=== PATIENT | female | born 1945 | race Two or more races ===

== ENCOUNTER 2017-08-11 09:15 | Outpatient (CLI) | payer OTHER ==
[~2017-08-11 09:15] MED LIST: CATAFLAM50 MG PO; NORFLEX100 MG PO; ORPH100T PO; PRILOSEC40 MG; SYNTHROID75 MCG; TORADOL10 MG PO; TRAMADOL HCL-AP1 TAB PO; VASOTEC2.5 MG; ZOCOR20 MG; ZOFRAN8 MG
== END 2017-08-11 09:20 | disposition home or self-care (01) ==
LOC: MAMO-SONO 09:15
DX: N63.10 Unspecified lump in the right breast, unspecified quadrant (principal); N63.20 Unspecified lump in the left breast, unspecified quadrant; C50.112 Malignant neoplasm of central portion of left female breast

== ENCOUNTER 2017-09-26 08:15 | Outpatient (CLI) | payer OTHER | END 2017-09-26 08:21 | disposition home or self-care (01) | LOC: TOM 08:15 | DX: C50.311 Malignant neoplasm of lower-inner quadrant of right female breast (principal); C50.312 Malignant neoplasm of lower-inner quadrant of left female breast; Z92.21 Personal history of antineoplastic chemotherapy; Z17.0 Estrogen receptor positive status [ER+]; Z79.811 Long term (current) use of aromatase inhibitors; D51.3 Other dietary vitamin B12 deficiency anemia; D51.9 Vitamin B12 deficiency anemia, unspecified; E03.8 Other specified hypothyroidism; E55.9 Vitamin D deficiency, unspecified; K57.30 Diverticulosis of large intestine without perforation or abscess without bleeding; E78.4 Other hyperlipidemia; I10 Essential (primary) hypertension | CPT/HCPCS: 71260; 74177; Q9965 ==

== ENCOUNTER → 2017-10-07 | Emergency (ER) | payer OTHER ==
[~2017-10-07] VITALS: Ht 160 cm; Wt 61.2 kg
[~2017-10-07] MED LIST changes: +FEMARA2.5 MG PO; +TOPROL XL25 MG PO; +ZESTRIL20 MG PO
== END | disposition home or self-care (01) ==
LOC: ER 09:41
DX: L72.0 Epidermal cyst (principal); L03.312 Cellulitis of back [any part except buttock and flank]

== ENCOUNTER → 2017-10-25 | Outpatient (CLI) | payer OTHER | END | disposition home or self-care (01) | LOC: NUCLEAR 10-20 10:00 | DX: M81.0 Age-related osteoporosis without current pathological fracture (principal) ==

== ENCOUNTER 2018-01-10 09:05 | Outpatient (CLI) | payer OTHER | END 2018-01-10 09:15 | disposition home or self-care (01) | LOC: MAMO-SONO 09:05 | DX: M65.811 Other synovitis and tenosynovitis, right shoulder (principal) ==

== ENCOUNTER → 2018-04-16 | Outpatient (CLI) | payer OTHER | END | disposition home or self-care (01) | LOC: SONOGRAMA 09:01 → MAMO-SONO 09:15 | DX: E03.8 Other specified hypothyroidism (principal); E07.89 Other specified disorders of thyroid ==

== ENCOUNTER 2018-04-25 08:44 | Outpatient (CLI) | payer OTHER ==
[~2018-04-25] VITALS: Ht 152.4 cm; Wt 61.2 kg
== END 2018-04-25 15:52 | disposition home or self-care (01) ==
LOC: OFIC 805 08:44
DX: H90.3 Sensorineural hearing loss, bilateral (principal); H93.11 Tinnitus, right ear; J37.0 Chronic laryngitis; R22.1 Localized swelling, mass and lump, neck; E04.1 Nontoxic single thyroid nodule

== ENCOUNTER 2018-04-25 11:12 | Outpatient (CLI) | payer OTHER | END 2018-04-25 11:20 | disposition home or self-care (01) | LOC: LAB 11:12 | DX: N20.0 Calculus of kidney (principal); Z51.81 Encounter for therapeutic drug level monitoring ==

== ENCOUNTER 2018-04-27 08:00 | Outpatient (CLI) | payer OTHER | END 2018-04-27 08:10 | disposition home or self-care (01) | LOC: TOM 08:00 | DX: E04.1 Nontoxic single thyroid nodule (principal) | CPT/HCPCS: 70491; Q9965 ==

== ENCOUNTER 2018-05-01 09:22 | Outpatient (CLI) | payer OTHER | END 2018-05-01 09:29 | disposition home or self-care (01) | LOC: SONOGRAMA 09:22 | DX: E04.2 Nontoxic multinodular goiter (principal) ==

== ENCOUNTER 2018-05-09 07:33 | Outpatient (CLI) | payer OTHER ==
[~2018-05-09] VITALS: Ht 152.4 cm; Wt 61.2 kg
== END 2018-05-09 08:57 | disposition home or self-care (01) ==
LOC: OFIC 805 07:33
DX: R59.0 Localized enlarged lymph nodes (principal); H93.13 Tinnitus, bilateral; H90.3 Sensorineural hearing loss, bilateral

== ENCOUNTER 2018-05-22 09:31 | Outpatient (CLI) | payer OTHER | END 2018-05-22 09:40 | disposition home or self-care (01) | LOC: RAD 501 09:31 | DX: M17.0 Bilateral primary osteoarthritis of knee (principal) ==

== ENCOUNTER 2018-07-26 07:25 | Emergency (ER) | payer OTHER ==
[~2018-07-26] VITALS: Ht 154.9 cm; Wt 69.4 kg
[2018-07-26] MEDS ORDERED: ZESTRIL30 MG PO (08:09)
[2018-07-26] MEDS ORDERED: KETO10TA2 PO (08:55)
[2018-07-26] MEDS ORDERED: SKELAXIN800 MG PO (08:55)
== END 2018-07-26 09:11 | disposition home or self-care (01) ==
LOC: ER 07:25
DX: M25.551 Pain in right hip (principal)

== ENCOUNTER 2018-08-13 07:49 | Outpatient (CLI) | payer OTHER ==
[~2018-08-13 07:49] MED LIST changes: +KETO10TA2 PO; +SKELAXIN800 MG PO; +ZESTRIL30 MG PO
== END 2018-08-13 08:24 | disposition home or self-care (01) ==
LOC: MAMO-SONO 07:49
DX: Z12.31 Encounter for screening mammogram for malignant neoplasm of breast (principal); N60.11 Diffuse cystic mastopathy of right breast; N60.12 Diffuse cystic mastopathy of left breast

== ENCOUNTER → 2018-09-21 | Outpatient (CLI) | payer OTHER | END | disposition home or self-care (01) | LOC: NUCLEAR 08:43 | DX: M54.5 Low back pain (principal); Z85.3 Personal history of malignant neoplasm of breast | CPT/HCPCS: 78306; A9503 ==

== ENCOUNTER → 2018-10-23 | Outpatient (CLI) | payer OTHER | END | disposition home or self-care (01) | LOC: LAB 09:38 | DX: C50.312 Malignant neoplasm of lower-inner quadrant of left female breast (principal); Z51.81 Encounter for therapeutic drug level monitoring ==

== ENCOUNTER 2018-10-25 07:21 | Outpatient (CLI) | payer OTHER | END 2018-10-25 07:31 | disposition home or self-care (01) | LOC: TOM 07:21 | DX: C50.312 Malignant neoplasm of lower-inner quadrant of left female breast (principal); Z17.0 Estrogen receptor positive status [ER+]; Z79.811 Long term (current) use of aromatase inhibitors; Z92.21 Personal history of antineoplastic chemotherapy; D51.3 Other dietary vitamin B12 deficiency anemia; D51.9 Vitamin B12 deficiency anemia, unspecified; E03.8 Other specified hypothyroidism; E55.9 Vitamin D deficiency, unspecified; K57.30 Diverticulosis of large intestine without perforation or abscess without bleeding; E78.49 Other hyperlipidemia; I10 Essential (primary) hypertension | CPT/HCPCS: 71270; 74178; Q9965 ==

== ENCOUNTER 2018-11-14 08:17 | Outpatient (CLI) | payer OTHER ==
[~2018-11-14] VITALS: Ht 152.4 cm; Wt 61.2 kg
== END 2018-11-14 08:35 | disposition home or self-care (01) ==
LOC: OFIC 805 08:17
DX: R59.9 Enlarged lymph nodes, unspecified (principal); H93.13 Tinnitus, bilateral; J37.0 Chronic laryngitis

== ENCOUNTER 2018-12-12 10:29 | Outpatient (CLI) | payer OTHER | END 2018-12-12 10:36 | disposition home or self-care (01) | LOC: RAD 501 10:29 | DX: M16.0 Bilateral primary osteoarthritis of hip (principal) ==

== ENCOUNTER → 2019-05-15 08:26 | Outpatient (CLI) | payer OTHER | END | disposition home or self-care (01) | LOC: LAB 08:26 | DX: D51.3 Other dietary vitamin B12 deficiency anemia (principal); C50.312 Malignant neoplasm of lower-inner quadrant of left female breast; Z17.0 Estrogen receptor positive status [ER+]; Z79.811 Long term (current) use of aromatase inhibitors; Z92.21 Personal history of antineoplastic chemotherapy; D51.8 Other vitamin B12 deficiency anemias; N93.8 Other specified abnormal uterine and vaginal bleeding; E03.8 Other specified hypothyroidism; E55.9 Vitamin D deficiency, unspecified; K57.30 Diverticulosis of large intestine without perforation or abscess without bleeding; E78.49 Other hyperlipidemia; I10 Essential (primary) hypertension; E28.0 Estrogen excess ==

== ENCOUNTER 2019-05-22 07:48 | Outpatient (CLI) | payer OTHER ==
[~2019-05-22] VITALS: Ht 152.4 cm; Wt 61.2 kg
== END 2019-05-22 08:15 | disposition home or self-care (01) ==
LOC: OFIC 805 07:48
DX: J31.0 Chronic rhinitis (principal); J37.0 Chronic laryngitis; H93.13 Tinnitus, bilateral; H90.3 Sensorineural hearing loss, bilateral

== ENCOUNTER → 2019-08-15 | Outpatient (CLI) | payer OTHER | END | disposition home or self-care (01) | LOC: MAMO-SONO 07:45 | DX: N60.11 Diffuse cystic mastopathy of right breast (principal); N60.12 Diffuse cystic mastopathy of left breast; C50.112 Malignant neoplasm of central portion of left female breast; Z12.31 Encounter for screening mammogram for malignant neoplasm of breast ==

== ENCOUNTER 2019-12-02 10:12 | Outpatient (CLI) | payer OTHER | END 2019-12-02 11:53 | disposition home or self-care (01) | LOC: NUCLEAR 10:12 | PROVIDERS: ATTEND Internal Medicine Rheumatology | DX: M81.0 Age-related osteoporosis without current pathological fracture (principal) ==

== ENCOUNTER 2019-12-05 10:06 | Outpatient (CLI) | payer OTHER | END 2019-12-05 10:13 | disposition home or self-care (01) | LOC: LAB 10:06 | DX: C50.312 Malignant neoplasm of lower-inner quadrant of left female breast (principal) ==

== ENCOUNTER 2019-12-12 07:25 | Outpatient (CLI) | payer OTHER | END 2019-12-12 07:28 | disposition home or self-care (01) | LOC: TOM 07:25 | PROVIDERS: ATTEND Internal Medicine Hematology & Oncology | DX: C50.312 Malignant neoplasm of lower-inner quadrant of left female breast (principal); M81.0 Age-related osteoporosis without current pathological fracture; Z17.0 Estrogen receptor positive status [ER+]; Z79.811 Long term (current) use of aromatase inhibitors; Z92.21 Personal history of antineoplastic chemotherapy; D51.3 Other dietary vitamin B12 deficiency anemia; D51.8 Other vitamin B12 deficiency anemias; N93.8 Other specified abnormal uterine and vaginal bleeding; E03.8 Other specified hypothyroidism; E55.9 Vitamin D deficiency, unspecified; K57.30 Diverticulosis of large intestine without perforation or abscess without bleeding; E78.49 Other hyperlipidemia; I10 Essential (primary) hypertension; E28.0 Estrogen excess | CPT/HCPCS: 71260; 74177; Q9965 ==

== ENCOUNTER 2020-02-22 08:04 | Emergency (ER) | payer OTHER ==
[~2020-02-22] VITALS: Ht 154.9 cm; Wt 61.2 kg
[2020-02-22] MEDS ORDERED: NAPR500T14 (08:29)
[2020-02-22] MEDS ORDERED: DILTIAZEM ER120 M2 (08:29)
[2020-02-22] MEDS ORDERED: SYNTHROID100 MCG (08:30)
== END 2020-02-22 11:34 | disposition home or self-care (01) ==
LOC: ER 08:04
DX: M62.838 Other muscle spasm (principal)

== ENCOUNTER 2020-04-21 07:12 | Outpatient (CLI) | payer OTHER ==
[~2020-04-21 07:12] MED LIST changes: +DILTIAZEM ER120 M2; +NAPR500T14; +SYNTHROID100 MCG
== END 2020-04-21 15:21 | disposition home or self-care (01) ==
LOC: NUCLEAR 07:12
PROVIDERS: ATTEND Internal Medicine Cardiovascular Disease
DX: R07.89 Other chest pain (principal); I10 Essential (primary) hypertension; I11.9 Hypertensive heart disease without heart failure
CPT/HCPCS: 78452; 93017; A9500; J0153

== ENCOUNTER → 2020-08-17 | Outpatient (CLI) | payer OTHER | END | disposition home or self-care (01) | LOC: MAMO-SONO 07:46 | PROVIDERS: ATTEND Surgery | DX: Z12.31 Encounter for screening mammogram for malignant neoplasm of breast (principal); N60.11 Diffuse cystic mastopathy of right breast; N60.12 Diffuse cystic mastopathy of left breast; C50.112 Malignant neoplasm of central portion of left female breast ==

== ENCOUNTER 2020-10-14 11:59 | Inpatient (IN) | payer OTHER ==
[~2020-10-14] VITALS: Ht 154.9 cm; Wt 61.7 kg
[2020-10-15] MEDS ORDERED: CIPRO500 MG PO (09:56)
[2020-10-15] MEDS ORDERED: DOLOGEN 325-11 EACH PO (09:56)
== END 2020-10-15 10:35 | disposition home or self-care (01) | DRG 342 ==
LOC: ER 11:59 → SURG 17:50 → SEC-K 17:50 → O/R 20:21 → SURG 22:28
PROVIDERS: ADMIT Surgery; ATTEND Surgery
PROC: 0WQF0ZZ Repair Abdominal Wall, Open Approach (ICD-10-PCS; 2020-10-14)
PROC: 0DTJ0ZZ Resection of Appendix, Open Approach (ICD-10-PCS; principal; 2020-10-14 19:00)
DX: K35.890 Other acute appendicitis without perforation or gangrene (principal); K43.6 Other and unspecified ventral hernia with obstruction, without gangrene; I10 Essential (primary) hypertension

== ENCOUNTER 2021-08-23 08:03 | Outpatient (CLI) | payer OTHER ==
[~2021-08-23 08:03] MED LIST changes: +CIPRO500 MG PO; +DOLOGEN 325-11 EACH PO
== END 2021-08-23 08:16 | disposition home or self-care (01) ==
LOC: MAMO-SONO 08:03
PROVIDERS: ATTEND Surgery
DX: N60.11 Diffuse cystic mastopathy of right breast (principal); N60.12 Diffuse cystic mastopathy of left breast; C50.112 Malignant neoplasm of central portion of left female breast

== ENCOUNTER 2021-09-29 07:40 | Outpatient (CLI) | payer OTHER | END 2021-09-29 07:53 | disposition home or self-care (01) | LOC: SONOGRAMA 07:40 | PROVIDERS: ATTEND Internal Medicine Hematology & Oncology | DX: C50.312 Malignant neoplasm of lower-inner quadrant of left female breast (principal); M81.0 Age-related osteoporosis without current pathological fracture; Z17.0 Estrogen receptor positive status [ER+]; Z79.811 Long term (current) use of aromatase inhibitors; Z92.21 Personal history of antineoplastic chemotherapy; D51.3 Other dietary vitamin B12 deficiency anemia; N93.8 Other specified abnormal uterine and vaginal bleeding; E03.9 Hypothyroidism, unspecified; E55.9 Vitamin D deficiency, unspecified; K57.30 Diverticulosis of large intestine without perforation or abscess without bleeding; E78.5 Hyperlipidemia, unspecified; I10 Essential (primary) hypertension; E28.0 Estrogen excess ==

== ENCOUNTER → 2021-12-02 10:35 | Outpatient (CLI) | payer OTHER | END | disposition home or self-care (01) | LOC: NUCLEAR 10:35 | PROVIDERS: ATTEND Internal Medicine Rheumatology | DX: M81.0 Age-related osteoporosis without current pathological fracture (principal) ==

== ENCOUNTER 2022-08-04 07:38 | Outpatient (CLI) | payer OTHER | END 2022-08-04 07:51 | disposition home or self-care (01) | LOC: RX STUDY 07:38 | PROVIDERS: ATTEND Specialist | DX: R13.19 Other dysphagia (principal); E03.9 Hypothyroidism, unspecified; J45.998 Other asthma ==

== ENCOUNTER 2022-08-16 07:27 | Outpatient (CLI) | payer OTHER | END 2022-08-16 07:43 | disposition home or self-care (01) | LOC: TOM 07:27 | PROVIDERS: ATTEND Specialist | DX: K22.2 Esophageal obstruction (principal); R22.2 Localized swelling, mass and lump, trunk | CPT/HCPCS: 71260; Q9965 ==

== ENCOUNTER → 2022-08-29 | Outpatient (CLI) | payer OTHER | END | disposition home or self-care (01) | LOC: MAMO-SONO 08:04 | PROVIDERS: ATTEND Surgery | DX: C50.112 Malignant neoplasm of central portion of left female breast (principal); N60.11 Diffuse cystic mastopathy of right breast; N60.12 Diffuse cystic mastopathy of left breast ==

== ENCOUNTER 2022-10-26 09:50 | Outpatient (CLI) | payer OTHER | END 2022-10-26 09:58 | disposition home or self-care (01) | LOC: RAD 09:50 | PROVIDERS: ATTEND Internal Medicine Rheumatology | DX: M25.562 Pain in left knee (principal); M25.561 Pain in right knee ==

== ENCOUNTER 2023-01-30 07:57 | Emergency (ER) | payer OTHER ==
[~2023-01-30] VITALS: Ht 154.9 cm; Wt 62.6 kg
[2023-01-30] MEDS ORDERED: PEPCID AC20 MG PO (10:43)
[2023-01-30] MEDS ORDERED: INTESTINEX680 M1 PO (10:43)
== END 2023-01-30 10:54 | disposition home or self-care (01) ==
LOC: ER 07:57
DX: K52.9 Noninfective gastroenteritis and colitis, unspecified (principal); I10 Essential (primary) hypertension; K57.92 Diverticulitis of intestine, part unspecified, without perforation or abscess without bleeding; E03.9 Hypothyroidism, unspecified

== ENCOUNTER 2023-02-27 08:24 | Outpatient (CLI) | payer OTHER ==
[~2023-02-27 08:24] MED LIST changes: +INTESTINEX680 M1 PO; +PEPCID AC20 MG PO
== END 2023-02-27 08:35 | disposition home or self-care (01) ==
LOC: SONOGRAMA 08:24
PROVIDERS: ATTEND Surgery
DX: N60.12 Diffuse cystic mastopathy of left breast (principal); N60.11 Diffuse cystic mastopathy of right breast

== ENCOUNTER 2023-08-31 08:49 | Outpatient (CLI) | payer OTHER | END 2023-08-31 08:58 | disposition home or self-care (01) | LOC: MAMO-SONO 08:49 | PROVIDERS: ATTEND Surgery | DX: N60.11 Diffuse cystic mastopathy of right breast (principal); N60.12 Diffuse cystic mastopathy of left breast; C50.112 Malignant neoplasm of central portion of left female breast; Z12.31 Encounter for screening mammogram for malignant neoplasm of breast ==

== ENCOUNTER → 2024-04-26 | Emergency (ER) | payer OTHER ==
[~2024-04-26] VITALS: Ht 154.9 cm; Wt 60.8 kg
[~2024-04-26] MED LIST changes: +0.9 % SODIUM CHLORIDE 1,000 ML IV SCH; +ACETAMINOPHEN 500 MG GEL..CAP PO PRN; +BUDESONIDE 0.5 MG/2 ML AMPUL.NEB IH SCH; +CEFTRIAXONE SODIUM 2,000 MG VIAL IV STA; +DILTIAZEM HCL 120 MG TABLET PO SCH; +FAMOTIDINE/PF 20 MG in 0.9 % SODIUM CHLORIDE 8 ML IV PUSH SCH; +GUAIFENESIN 200 MG/10 ML BLIST.PACK PO STA; +IPRATROPIUM BROMIDE 0.5 MG/2.5 ML AMPUL.NEB IH SCH; +LEVOTHYROXINE SODIUM 100 MCG TABLET PO SCH; +LISINOPRIL 20 MG TABLET PO SCH; +levoFLOXacin IN DEXTROSE 5 % 150 ML IV SCH
[2024-04-26 20:30] LABS: HEMATOCRIT 37.2 % (36.0-45.00); HEMOGLOBIN 12.8 g/dL (12.0-15.00); MEAN CELL VOLUME 93.3 fL (80.00-100.00); MEAN CORPUSCULAR HEMOGLOBIN 32.2 pg (27.00-32.0); MEAN CORPUSCULAR HGB CONC 34.5 g/dl (32.0-36.0); PLATELET COUNT 482 K/uL (150-450); RED BLOOD COUNT 3.98 M/uL (4.00-6.00); RED CELL DISTRIBUTION WIDTH 13.9 % (11.5-14.5)
[2024-04-26 20:46] LABS: CREATININE SERUM 1.05 mg/dL (0.55-1.02); GFR 50.95; POTASSIUM 4.74 mEq/L (3.5-5.1)
[2024-04-26 20:52] LABS: PH,URINE 5.5 (5.0-8.0); URINE APPEARANCE Clear; URINE BILIRRUBIN Negative (NEGATIVE); URINE BLOOD Trace; URINE COLOR Yellow; URINE GLUCOSE Negative (NEGATIVE); URINE KETONE Negative (NEGATIVE); URINE LEUKOCYTE Moderate; URINE NITRATE Negative; URINE PROTEIN Negative (NEGATIVE); URINE UROBILINOGEN 0.2 E.U./dl
[2024-04-26 20:54] LABS: URINE BACTERIA 254.5 uL (0.0-1933); URINE EPITHELIAL CELLS 10.9 uL (0.0-38.8); URINE RBC 7.4 uL (0.0-20.8); URINE WBC 115.7 uL (0.0-23.2)
[2024-04-26 20:55] LABS: URINE CAST 0.91 uL (0.0-1.40)
== END | disposition left against medical advice (07) ==
LOC: ER 18:35
PROVIDERS: General Practice
DX: J45.998 Other asthma (principal); N39.0 Urinary tract infection, site not specified; R05.8 Other specified cough; Z20.822 Contact with and (suspected) exposure to COVID-19

== ENCOUNTER 2024-07-29 08:12 | Outpatient (CLI) | payer OTHER ==
[~2024-07-29 08:12] MED LIST changes: -0.9 % SODIUM CHLORIDE 1,000 ML IV SCH; -ACETAMINOPHEN 500 MG GEL..CAP PO PRN; -BUDESONIDE 0.5 MG/2 ML AMPUL.NEB IH SCH; -CEFTRIAXONE SODIUM 2,000 MG VIAL IV STA; -DILTIAZEM HCL 120 MG TABLET PO SCH; -FAMOTIDINE/PF 20 MG in 0.9 % SODIUM CHLORIDE 8 ML IV PUSH SCH; -GUAIFENESIN 200 MG/10 ML BLIST.PACK PO STA; -IPRATROPIUM BROMIDE 0.5 MG/2.5 ML AMPUL.NEB IH SCH; -LEVOTHYROXINE SODIUM 100 MCG TABLET PO SCH; -LISINOPRIL 20 MG TABLET PO SCH; -levoFLOXacin IN DEXTROSE 5 % 150 ML IV SCH
== END 2024-07-29 08:18 | disposition home or self-care (01) ==
LOC: RAD 08:12
PROVIDERS: ATTEND Internal Medicine Rheumatology
DX: M19.072 Primary osteoarthritis, left ankle and foot (principal)

== ENCOUNTER 2024-09-03 07:59 | Outpatient (CLI) | payer OTHER | END 2024-09-03 08:08 | disposition home or self-care (01) | LOC: MAMO-SONO 07:59 | PROVIDERS: ATTEND Surgery | DX: N60.11 Diffuse cystic mastopathy of right breast (principal); N60.12 Diffuse cystic mastopathy of left breast ==

== ENCOUNTER 2024-09-26 07:53 | Emergency (ER) | payer OTHER ==
[~2024-09-26] VITALS: Ht 154.9 cm; Wt 62.6 kg
[~2024-09-26 07:53] MED LIST changes: +SIMVASTATIN5 MG; +VITAMIN D310 MCG/1 M
[2024-09-26] MEDS ORDERED: DEXAMETHASONE SODIUM PHOSPHATE 4 MG/ML VIAL IM STA (08:49)
[2024-09-26] MEDS ORDERED: KETOROLAC TROMETHAMINE 30 MG VIAL IM STA (08:49)
[2024-09-26] MEDS ORDERED: ORPHENADRINE CITRATE 30 MG/ML AMPUL IM STA (08:49)
[2024-09-26] MEDS ORDERED: DICLOFENAC POTA50 MG PO (10:44)
[2024-09-26] MEDS ORDERED: MEDROLPACK PO (10:44)
[2024-09-26] MEDS ORDERED: NORFLEX100MG PO (10:44)
== END 2024-09-26 10:51 | disposition home or self-care (01) ==
LOC: ER 07:55
DX: M54.2 Cervicalgia (principal); M25.512 Pain in left shoulder; E03.8 Other specified hypothyroidism; I10 Essential (primary) hypertension; Z85.3 Personal history of malignant neoplasm of breast
CPT/HCPCS: 72040; 73030; 96372; 99283; J1100; J1885; J2360

== ENCOUNTER 2024-10-01 05:16 | Day surgery (SDC) | payer OTHER ==
[~2024-10-01 05:16] MED LIST changes: +DICLOFENAC POTA50 MG PO; +MEDROLPACK PO; +NORFLEX100MG PO
[2024-10-01] MEDS ORDERED: LIDOCAINE HCL 1%/EPINEPHRINE 20ML VIAL IJ ONE (08:00)
[2024-10-01] MEDS ORDERED: CEFAZOLIN SODIUM 1,000 MG VIAL IV ONE (08:00)
[2024-10-01] MEDS ORDERED: CHLORHEXIDINE GLUCONATE 120 ML BOTTLE TOP ONE (08:00)
[2024-10-01] MEDS ORDERED: GENTAMICIN SULFATE/PF 10 MG/ML VIAL IJ ONE (08:00)
[2024-10-01] MEDS ORDERED: MACROBID 100 M100 MG PO (10:17)
[2024-10-01] MEDS ORDERED: TRAM1TAB98 PO (10:17)
== END 2024-10-01 13:15 | disposition home or self-care (01) ==
LOC: CIR.AMB 05:16
PROVIDERS: ATTEND Obstetrics & Gynecology Gynecology
DX: N81.11 Cystocele, midline (principal); D64.9 Anemia, unspecified; F41.9 Anxiety disorder, unspecified; Z85.3 Personal history of malignant neoplasm of breast

== ENCOUNTER 2025-03-06 07:17 | Outpatient (CLI) | payer OTHER ==
[~2025-03-06 07:17] MED LIST changes: +MACROBID 100 M100 MG PO; +TRAM1TAB98 PO
== END 2025-03-06 07:27 | disposition home or self-care (01) ==
LOC: TOM 07:17
PROVIDERS: ATTEND Specialist
DX: K56.609 Unspecified intestinal obstruction, unspecified as to partial versus complete obstruction (principal)
CPT/HCPCS: 74178; Q9965

== ENCOUNTER 2025-03-18 19:08 | Emergency (ER) | payer OTHER ==
[~2025-03-18] VITALS: Ht 157.5 cm; Wt 62.6 kg
== END 2025-03-18 21:01 | disposition home or self-care (01) ==
LOC: ER 19:08
DX: K59.00 Constipation, unspecified (principal)

== ENCOUNTER 2025-06-06 07:24 | Outpatient (CLI) | payer OTHER | END 2025-06-06 07:25 | disposition home or self-care (01) | LOC: NUCLEAR 07:24 | PROVIDERS: ATTEND Internal Medicine Hematology & Oncology | DX: C50.312 Malignant neoplasm of lower-inner quadrant of left female breast (principal) | CPT/HCPCS: 78816; A9552 ==

== ENCOUNTER 2025-06-10 11:03 | Outpatient (CLI) | payer OTHER | END 2025-06-10 11:08 | disposition home or self-care (01) | LOC: SONOGRAMA 11:03 | PROVIDERS: ATTEND Specialist | DX: R59.0 Localized enlarged lymph nodes (principal) ==

== ENCOUNTER 2025-07-02 18:28 | Emergency (ER) | payer OTHER ==
[~2025-07-02] VITALS: Ht 154.9 cm; Wt 61.2 kg
[2025-07-02] MEDS ORDERED: ACETAMINOPHEN 500 MG GEL..CAP PO ONE ×2 (19:15→19:29)
[2025-07-02] MEDS ORDERED: DEXAMETHASONE SODIUM PHOSPHATE 4 MG/ML VIAL IM ONE (19:15)
[2025-07-02] MEDS ORDERED: CEFTRIAXONE SODIUM 1,000 MG VIAL IM ONE (19:15)
[2025-07-02] MEDS ORDERED: CEFTRIAXONE SODIUM 1,000 MG VIAL ONE (19:29)
[2025-07-02] MEDS ORDERED: DEXAMETHASONE SODIUM PHOSPHATE 4 MG/ML VIAL ONE ×2 (19:29→19:36)
[2025-07-02] MEDS ORDERED: LIDOCAINE HCL/MPF 1% 5ML VIAL IJ ONE (19:29)
[2025-07-02 19:58] LABS: BASO % 0.5 % (0.1-1.2); EOS # 0.25 (0.04-0.54); EOS % 3.0 % (0.7-7.0); LYMPH # 2.94 (1.18-3.74); LYMPH % 35.0 % (19.3-53.1); MEAN PLATELET VOLUME 8.90 fl (9.4-12.4); MONO # 0.57 (0.24-0.82); MONO % 6.8 % (4.7-12.5); NEUT # 4.60 (1.56-6.13); NEUT % 54.6 % (34.0-71.1); RED CELL DISTRIBUTION WIDTH 13.2 % (11.6-14.4)
[2025-07-02 20:16] LABS: COVID-19 AG NEGATIVE (NEGATIVE)
[2025-07-02 20:32] LABS: BUN CREA RATIO 16.0 (7.0-25.0); CREATININE SERUM 1.01 mg/dL (0.55-1.02); GFR 53.15; GLUCOSE FASTING 96.0 mg/dL (65-100); OSMOLALITY SERUM 280.0 MOSM/KG (275-295)
[2025-07-02] MEDS ORDERED: PEPCID AC20 MG PO (22:04)
[2025-07-02] MEDS ORDERED: AMOX-CLAV 875-1 EACH PO (22:04)
[2025-07-02] MEDS ORDERED: INTESTINEX680 M1 PO (22:04)
[2025-07-02] MEDS ORDERED: CHLORASEPTIC177 M2 MM (22:04)
== END 2025-07-02 22:09 | disposition home or self-care (01) ==
LOC: ER 18:28
PROVIDERS: Student in an Organized Health Care Education/Training Program
DX: H66.90 Otitis media, unspecified, unspecified ear (principal); J03.90 Acute tonsillitis, unspecified; R51.9 Headache, unspecified; I10 Essential (primary) hypertension; E03.8 Other specified hypothyroidism; Z20.822 Contact with and (suspected) exposure to COVID-19
CPT/HCPCS: 36415; 70450; 96372; 99284; J0696; J1100